=== PATIENT | male | born 1980 | race Caucasian/White ===

== ENCOUNTER 2018-08-02 19:39 | Emergency (ER) | payer BC ==
[2018-08-02 19:47] VITALS: RESP 18
[2018-08-02] MEDS ORDERED: Tdap Vaccine 0.5 ml Vial (10-64 yrs) IM ONE (20:10)
--- NOTE | 2018-08-02 21:38 | ED PDOC ---
HPI: General Adult Time Seen by Provider: 08/02/18 20:01 Chief Complaint (Nursing): Medical Clearance Chief Complaint (Provider): Medical Clearance History Per: Patient History/Exam Limitations: no limitations Onset/Duration Of Symptoms: Hrs Additional Complaint(s): 38 y/o male with no significant PMHx brought to to the ED by PD, in police custody, for medical and psychiatric clearance. Patient states he was arrested and during arrest he was injured by the police. Patient reports injury to the face. Patient states he can't remember if he lost consciousness because he was apparently on the ground. At this time, patient is complaining of neck and facial pain. Denies vomiting, chest pain, shortness of breath and other injury. PMD: No Provider Past Medical History Reviewed: Historical Data, Nursing Documentation, Vital Signs Vital Signs: Last Vital Signs Temp 99 F 08/02/18 19:44 Pulse 73 08/02/18 19:44 Resp 18 08/02/18 19:44 BP 133/86 08/02/18 19:44 Pulse Ox 100 08/02/18 23:26 - Medical History PMH: No Chronic Diseases - Surgical History Other surgeries: Intestinal Surgery - Family History Family History: States: Unknown Family Hx - Home Medications Home Medications: Ambulatory Orders Medication Instructions Recorded Amoxicillin/Clavulanate [Augmentin 1 tab PO BID #14 tab 08/02/18 875 MG-125 MG] - Allergies Allergies/Adverse Reactions: Allergies Allergy/AdvReac Type Severity Reaction Status Date / Time No Known Allergies Allergy Verified 08/02/18 19:44 Review of Systems ROS Statement: Except As Marked, All Systems Reviewed And Found Negative Constitutional: Positive for: Other (Medical Clearance) Eyes: Positive for: Other (no diplopia). Negative for: Vision Change Psych: Positive for: Other (Psychiatric Clearance) Physical Exam - Reviewed Nursing Documentation Reviewed: Yes Vital Signs Reviewed: Yes - Physical Exam Appears: Positive for: No Acute Distress Head Exam: Positive for: ATRAUMATIC. Negative for: NORMAL INSPECTION (Abrasion note don the right cheek. ) Skin: Positive for: Warm, Dry Eye Exam: Positive for: EOMI, PERRL, Periorbital tenderness, Other (Bilateral Periorbital Ecchymosis, no proptosis. EOMI not limited). Negative for: Periorbital swelling ENT: Positive for: Normal ENT Inspection Neck: Positive for: Supple. Negative for: Normal (Diffuse tenderness) Cardiovascular/Chest: Positive for: Regular Rate, Rhythm. Negative for: Murmur Respiratory: Positive for: Normal Breath Sounds. Negative for: Respiratory Distress Gastrointestinal/Abdominal: Positive for: Normal Exam, Soft. Negative for: Tenderness Extremity: Positive for: Normal ROM. Negative for: Deformity Neurologic/Psych: Positive for: Alert, Oriented. Negative for: Motor/Sensory Deficits - ECG O2 Sat by Pulse Oximetry: 100 (RA) Pulse Ox Interpretation: Normal Medical Decision Making Medical Decision Making: Time: 2009 Impression: Medical and Psychiatric Clearance Plan: -- CT Cervical Spine w/o Contrast -- CT Head w/o Contrast -- CT Maxillofacial w/o Contrast -- Adacel (10-64 yrs) 0.6 ml IM -- Motrin 600 mg PO Time: 2127 CT HEAD RESULTS FINDINGS: Brain: Unremarkable. No hemorrhage. No significant white matter disease. No edema. Ventricles: Unremarkable. No ventriculomegaly. Bones/joints: Unremarkable. No acute fracture. Soft tissues: Unremarkable. Sinuses: Unremarkable as visualized. No acute sinusitis. Mastoid air cells: Unremarkable as visualized. No mastoid effusion. IMPRESSION: No evidence of acute intracranial hemorrhage. Thank you for allowing us to participate in the care of your patient. Dictated and Authenticated by: Brooks Sawyer MD 08/02/2018 9:28 PM Eastern Time ([place]) Time: 2130 CT MAXILLOFACIAL RESULTS FINDINGS: Bones/joints: Blowout fracture of the right inferior orbital wall. Soft tissues: Subcutaneous soft tissue swelling/scalp hematoma is noted in the right infraorbital and maxillary region. Orbits: See above Sinuses: Unremarkable. No air-fluid levels. Nasal cavity/septum: Left-sided nasal spur noted. IMPRESSION: 1. Blowout fracture of the right inferior orbital wall. 2. Subcutaneous soft tissue swelling/scalp hematoma is noted in the right infraorbital and maxillary region. Thank you for allowing us to participate in the care of your patient. Dictated and Authenticated by: Brooks Sawyer MD 08/02/2018 9:31 PM Eastern Time ([place]) Time: 2209 CT CERVICAL SPINE RESULTS FINDINGS: Vertebrae: Loss of cervical lordosis, which may be positional or due to muscle spasm. Multilevel discogenic degenerative changes. No acute fracture. Discs/spinal canal/neural foramina: No acute findings. Soft tissues: Unremarkable. Lung apices: Unremarkable as visualized. IMPRESSION: No acute C-spine traumatic injury. Thank you for allowing us to participate in the care of your patient. Dictated and Authenticated by: Ellen Zurita MD 08/02/2018 10:10 PM Eastern Time ([place]) 2300 Discussed the case and CT findings with Dr Coats from [facility] at [facility] who recommends outpatient follow up within 2 weeks. Scribe Attestation: Documented by Negro Hung acting as a scribe for Oscar Mcqueen MD. Provider Scribe Attestation: All medical record entries made by the Scribe were at my direction and personally dictated by me. I have reviewed the chart and agree that the record accurately reflects my personal performance of the history, physical exam, medical decision making, and the department course for this patient. I have also personally directed, reviewed, and agree with the discharge instructions and disposition. Disposition - Clinical Impression Clinical Impression: Fracture of inferior orbital wall, Facial abrasion, Neck injury, Head injury - Patient ED Disposition Is Patient to be Admitted: No Doctor Will See Patient In The: Office Counseled Patient/Family Regarding: Studies Performed, Diagnosis, Need For Followup - Disposition Referrals: formerly [facility] [Outside] Disposition: Discharged/Transfer to Law Enforcement Disposition Time: 23:26 Condition: GOOD Additional Instructions: Patient is medically and psychiatrically cleared for incarceration. Follow up with [facility] at [facility] within 2 weeks. Call for appointment: . ALEISHA LAFLEUR, thank you for letting us take care of you today. Your provider was Oscar Mcqueen MD and you were treated for MEDICAL CLEARANCE. The emergency medical care you received today was directed at your acute symptoms. If you were prescribed any medication, please fill it and take as directed. It may take several days for your symptoms to resolve. Return to the Emergency Department if your symptoms worsen, do not improve, or if you have any other problems. Please contact your doctor or call one of the physicians/clinics you have been referred to that are listed on the Patient Visit Information form that is included in your discharge packet. Bring any paperwork you were given at discharge with you along with any medications you are taking to your follow up visit. Our treatment cannot replace ongoing medical care by a primary care provider outside of the emergency department. Thank you for allowing the [facility] team to be part of your care today. If you had an X-Ray or CT scan: A Radiologist will review the ED reading if any change in treatment is needed we will contact you. If you had a blood, urine, or wound culture: It will take several days for the results, if any change in treatment is needed we will contact you. If you had an STI test: It will take 48 hours for the results. Please call after 1 week if you have not heard back. Prescriptions: Amoxicillin/Clavulanate [Augmentin 875 MG-125 MG] 1 tab PO BID #14 tab Instructions: Skull and Facial Fractures, Skin Abrasions, Closed Head Injury Forms: [employer] ([place])
[2018-08-02] MEDS ORDERED: Oxycodone/Acetaminophen 5/325 mg Tab PO ONE (22:16)
[2018-08-02] MEDS ORDERED: Oxycodone/Acetaminophen 5/325 mg Tab ONE (22:39)
[2018-08-03 00:03] VITALS: BP 131/78; PULSE 69; TEMP 98.8; O2SAT 99
--- NOTE | 2018-08-03 10:03 | CT ---
Date of service: 08/02/2018 PROCEDURE: CT HEAD WITHOUT CONTRAST. HISTORY: head injury COMPARISON: None available. TECHNIQUE: Axial computed tomography images were obtained through the head/brain without intravenous contrast. Radiation dose: Total exam DLP = 729.80 mGy-cm. This CT exam was performed using one or more of the following dose reduction techniques: Automated exposure control, adjustment of the mA and/or kV according to patient size, and/or use of iterative reconstruction technique. FINDINGS: HEMORRHAGE: No intracranial hemorrhage. BRAIN: Normal rodarte-white matter differentiation and density are appreciated throughout the cerebrum and cerebellum with the brainstem appearing unremarkable as well. There is no mass effect. There is no suspicious extra-axial fluid collection and the midline brain anatomy appears diffusely unremarkable. VENTRICLES: Unremarkable. No hydrocephalus. CALVARIUM: Unremarkable. PARANASAL SINUSES: Unremarkable as visualized. No significant inflammatory changes. MASTOID AIR CELLS: Unremarkable as visualized. No inflammatory changes. OTHER FINDINGS: None. IMPRESSION: Normal CT of the Head.
--- NOTE | 2018-08-03 10:09 | CT ---
Date of service: 08/02/2018 PROCEDURE: CT MAXILLOFACIAL BONES WITHOUT CONTRAST HISTORY: facial injury orbital injuries? COMPARISON: None available. TECHNIQUE: Contiguous axial CT images of the maxillofacial bones were obtained. Coronal and sagittal reformats were generated. Radiation dose: Total exam DLP = 816.99 mGy-cm. This CT exam was performed using one or more of the following dose reduction techniques: Automated exposure control, adjustment of the mA and/or kV according to patient size, and/or use of iterative reconstruction technique. FINDINGS: NASAL BONES: Unremarkable. ORBITS: Limited blood fracture posterior inferior wall right orbit with the left orbit intact. Mild inferior periorbital/pre malar hematoma, soft tissue edema. PARANASAL SINUSES/ MASTOIDS: Clear. Leftward bony nasal septal deviation without bony fracture identified. MAXILLA: Unremarkable. MANDIBLE/ TEMPOROMANDIBULAR JOINTS: Unremarkable. SKULL BASE: Unremarkable. TEMPORAL BONES: Middle ears and mastoid grossly unremarkable. OTHER FINDINGS: None. IMPRESSION: Limited blood fracture at the floor of the right orbit with inferior periorbital and premalar soft tissue edema/hematoma noted. No additional fracture or soft tissue finding otherwise. Concordant preliminary report from [facility], 08/02/2018.
--- NOTE | 2018-08-03 10:12 | CT ---
Date of service: 08/02/2018 PROCEDURE: CT Cervical Spine without contrast HISTORY: neck pain COMPARISON: None available. TECHNIQUE: Axial computed tomography images were obtained of the cervical spine without the use of intravenous contrast. Coronal and sagittal reformatted images were created and reviewed. Radiation dose: Total exam DLP = 370.48 mGy-cm. This CT exam was performed using one or more of the following dose reduction techniques: Automated exposure control, adjustment of the mA and/or kV according to patient size, and/or use of iterative reconstruction technique. FINDINGS: VERTEBRAE: Straightened cervical curvature without fracture of the vertebral bodies or posterior elements throughout the cervical spine. C1-2 articulation is craniocervical junction appear intact. The odontoid process is unremarkable. DISCS/SPINAL CANAL/NEURAL FORAMINA: No significant central canal or neural foraminal stenosis. Discs heights are grossly preserved. PARASPINAL SOFT TISSUES: Unremarkable. OTHER FINDINGS: None. IMPRESSION: Straightened cervical curvature without fracture or spondylolisthesis identified. Concordant preliminary report from [facility], 08/02/2018.
== END 2018-08-03 00:25 ==
LOC: H.ER 19:39
DX: S02.31XA Fracture of orbital floor, right side, initial encounter for closed fracture (principal); S00.81XA Abrasion of other part of head, initial encounter; S05.11XA Contusion of eyeball and orbital tissues, right eye, initial encounter; S00.03XA Contusion of scalp, initial encounter; S19.9XXA Unspecified injury of neck, initial encounter; Y35.813A Legal intervention involving manhandling, suspect injured, initial encounter; Y92.89 Other specified places as the place of occurrence of the external cause